=== PATIENT | female | born 1995 | race Caucasian/White ===

== ENCOUNTER 2024-12-13 15:19 | Emergency (ER) | payer MEDICAID ==
[~2024-12-13] VITALS: Ht 167.6 cm; Wt 105.0 kg
[2024-12-13 15:28] VITALS: BP 119/70; PULSE 64; RESP 16; TEMP 36.8; O2SAT 100
[2024-12-13 16:25] LABS: BASOPHILS % 0.2 % (0.0-2.0); EOSINOPHILS % 1.3 % (0.0-5.0); HEMATOCRIT. 35.4 % (36.0-48.0); HEMOGLOBIN. 11.5 g/dL (12.0-16.0); LYMPHOCYTES % 32.9 % (20.0-50.0); MEAN PLATELET VOLUME 10.6 fl (7.4-10.4); MONOCYTES % 5.8 % (2.0-8.0); NEUTROPHILS % 59.8 % (40.0-76.0); PLATELET 157 x1000/uL (130-400); RED BLOOD CELL COUNT 4.08 mill/uL (4.2-5.4); RED CELL DISTRIBUTION WIDTH 15.6 % (11.6-14.6)
[2024-12-13 16:38] LABS: CREATININE 0.7 mg/dL (0.6-1.0)
[2024-12-13 16:39] LABS: UREA NITROGEN BLOOD 9 mg/dL (9-23)
== END 2024-12-13 16:41 | disposition left against medical advice (07) ==
LOC: ER 15:19
DX: R55 Syncope and collapse (principal); R42 Dizziness and giddiness; R07.89 Other chest pain; Z53.21 Procedure and treatment not carried out due to patient leaving prior to being seen by health care provider
CPT/HCPCS: 36415; 80048; 85025; 93005